=== PATIENT | female | born 1995 | race Caucasian/White ===

== ENCOUNTER 2019-08-05 16:34 | Emergency (ER) | payer OTHER, SELFPAY ==
[2019-08-05 16:52] VITALS: BP 126/77; PULSE 108; RESP 20; TEMP 37.8; O2SAT 100
--- NOTE | 2019-08-05 17:37 | ED.GENADULT ---
HPI - General Adult General Chief complaint: Upper Respiratory Infection Stated complaint: congested cough and fever Time Seen by Provider: 08/05/19 17:38 Source: patient and RN notes reviewed Mode of arrival: ambulatory Limitations: no limitations History of Present Illness HPI narrative: This is a 23 years old female presented office for evaluation of flulike symptom for three days. Symptoms include stuffy nose, sore throat, fever, and cough. Denies vomiting or diarrhea. She has been taking cold medicine for her symptoms. Denies sick contact. She normally does not get influenza vaccine. Related Data Home Medications Medication Instructions Recorded Confirmed No Home Medications 08/05/19 08/05/19 Allergies Allergy/AdvReac Type Severity Reaction Status Date / Time cefaclor Allergy Mild Rash Verified 02/19/19 16:39 Review of Systems Review of Systems: Narrative: CONSTITUTIONAL:Reports fever, chills, sweats. ENT: Reports rhinorrhea, congestion, sore throat. Denies ears pain CARDIOVASCULAR: Denies chest pain RESPIRATORY: Denies dyspnea, wheezing. Reports cough GASTROINTESTINAL: Denies abdominal pain, nausea, vomiting, diarrhea. GENITOURINARY: Denies urinary symptoms or discharge SKIN: Denies rash MUSCULOSKELETAL: Denies acute back pain NEUROLOGIC: Denies lightheaded PMFSH Social History Social History (Updated 08/05/19 @ 17:44 by ROXIE Parisi) Smoking status: Never smoker Comments At time of signature, I agree with nursing past medical, surgical, social and family history. There is no relevant family history pertinent to the presenting complaint. Exam Narrative: Exam Narrative: GENERAL: This is a well-nourished, well-developed patient, in no apparent distress. EYES: Sclera clear/white. Vision is grossly intact. EARS: External ears normal, auditory canals clear and without drainage, TMs normal without perforation. Hearing grossly intact. NOSE: External nose normal with no obvious nasal discharge, nares without redness, no rhinorrhea. THROAT: Mucous membranes moist, posterior pharynx erythema with drainage. NECK: Neck supple, non-tender without lymphadenopathy, masses or thyromegaly. CARDIOVASCULAR: Regular rate and rhythm without murmurs, gallops, or rubs. RESPIRATORY: Clear to auscultation. Breath sounds equal bilaterally. No wheezes, rales, or rhonchi. GASTROINTESTINAL: Abdomen soft, non-tender, nondistended. Bowel sounds are active. No hepato-splenomegaly, or palpable masses. No guarding. SKIN: warm, intact with no suspicious lesions or rash, good texture and turgor. NEURO: awake, alert, and oriented to person, place and time. There were no obvious focal neurologic abnormalities. Steady gait Darryn Coma Scale Eye Opening: Spontaneous 4 Darryn Coma Scale Motor: Obeys Commands 6 Darryn Coma Scale Verbal: Oriented 5 Course Vital Signs Vital signs: Vital Signs Temperature 100.1 F H 08/05/19 16:52 Pulse Rate 108 H 08/05/19 16:52 Respiratory Rate 08/05/19 16:52 Blood Pressure 126/77 08/05/19 16:52 Pulse Oximetry 100 08/05/19 16:52 Temperature 100.1 F H 08/05/19 16:52 Pulse Rate 108 H 08/05/19 16:52 Respiratory Rate 08/05/19 16:52 Blood Pressure 126/77 08/05/19 16:52 Pulse Oximetry 100 08/05/19 16:52 Medical Decision Making MDM Narrative Medical decision making narrative: Discharge instructions reviewed with patient, as well as provided in writing per nursing staff. The instructions also include specific and strict return/GO TO THE ER as well as f/u information. All questions have been answered, and the patient* deny any further questions with discharge and discharge plan. Differential Diagnosis Differential Diagnosis: pneumonia, Allergic Rhinitis, Upper respiratory cough syndrome, Pharyngitis, Sinusitis, Bronchitis, otitis media, viral URI, Asthma/reactive airway disease, influenza Vital Signs Vital Signs: Vital Signs Temperature 100.1
== END 2019-08-05 17:50 | disposition home or self-care (01) ==
PROVIDERS: Emergency Provider Nurse Practitioner
DX: J10.1 Influenza due to other identified influenza virus with other respiratory manifestations (principal)
CPT/HCPCS: 87804; 99212; G0463

== ENCOUNTER 2020-01-11 09:10 | Emergency (ER) | payer OTHER, SELFPAY ==
[2020-01-11 09:15] VITALS: BP 119/80; PULSE 84; RESP 16; TEMP 37.1; O2SAT 100
--- NOTE | 2020-01-11 09:38 | ED.GENADULT ---
HPI - General Adult General Chief complaint: Urogenital-Female Stated complaint: frequent urination/pain with urination Time Seen by Provider: 01/11/20 09:38 Source: patient and RN notes reviewed Mode of arrival: ambulatory Limitations: no limitations History of Present Illness HPI narrative: 24-year-old female presents with urinary complaints for the past 3 days. Dysuria consist of burning, frequency, and urgency.? Azo yesterday with some relief.? Denies fever or chills. No significant pelvic pain. No vaginal discharge.? No concerns for STDs. Exacerbating factors urinating.? Denies hematuria or vaginal bleeding. Denies being , LMP 01/10/20.? No flank pain. Denies nausea, vomiting, and abdominal pain.? Tolerating liquids well.? Remains active. The patient reports she have not been diagnosed with COVID-19. The patient reports she is not waiting for the results of a COVID-19 lab test. The patient reports she do not have fever, chills, weakness, or fatigue. The patient reports she do not have a new or worsening cough or shortness of breath. Denies chest pain. The patient reports she do not have any rhinorrhea, congestion, sore throat, and diarrhea. Denies recent traveling. Denies concerns for COVID-19 or exposures been home with limited outdoor exposure except for essential household needs, work, and return home. At this time, patient is not suspected of having COVID-19. Some parts of this dictation were generated by voice recognition software and may contain typographical and/or grammatical inaccuracies. Related Data Allergies Allergy/AdvReac Type Severity Reaction Status Date / Time cefaclor Allergy Mild Rash Verified 01/11/20 09:38 Review of Systems Review of Systems: Narrative: CONSTITUTIONAL: Denies fever, chills, sweats. EYES: Denies visual changes, redness, discharge. ENT: Denies rhinorrhea, congestion, sore throat, otalgia. CARDIOVASCULAR: Denies chest pain, palpitations, edema. RESPIRATORY: Denies dyspnea, wheezing, cough. GASTROINTESTINAL: Denies abdominal pain, nausea, vomiting, diarrhea. GENITOURINARY: Complains of dysuria (burning, frequency, and urgency). Denies hematuria, abnormal discharge. SKIN: Denies rash or itching. MUSCULOSKELETAL: Denies acute back pain, joint pain, or myalgia. NEUROLOGIC: Denies numbness or focal weakness. PSYCHIATRIC: Denies anxiety or depression. All systems reviewed & are unremarkable except as noted in HPI and below. [facility] Past Medical History Medical History (Updated 01/11/20 @ 10:45 by ROXIE Alonzo) No significant past medical history Surgical History Surgical History (Updated 01/11/20 @ 10:45 by ROXIE Alonzo) No significant past surgical history Family History Family History (Updated 01/11/20 @ 10:46 by ROXIE Alonzo) Father Alive and well Father Alive and well Social History Social History (Updated 01/11/20 @ 10:46 by ROXIE Alonzo) Smoking status: Never smoker Second hand tobacco smoke exposure: Yes Alcohol intake: never Substance use: never Living arrangements: with family Occupation/Education: occupation Gender identity (if verbalized by the patient): Female Sexual Orientation (if Verbalized by the Patient): Straight or Heterosexual Comments At time of signature, agree with nurse past medical, surgical, social, and family history.? There is no relevant family history pertinent to the presenting complaint. Exam Narrative: Exam Narrative: GENERAL: This is a well-nourished, well-developed patient, in no apparent distress.? Talks in full sentences and ambulates with steady gait without dyspnea. HEAD: normocephalic, atraumatic. EYES: PERRL. Sclera clear/white. Vision is grossly intact. CARDIOVASCULAR: Regular rate and rhythm without murmurs, gallops, or rubs. RESPIRATORY: Clear to auscultation. Breath sounds equal bilaterally. No wheezes, rales, or rhonchi.? GASTROINTESTINAL: Abdomen soft
== END 2020-01-11 09:48 | disposition home or self-care (01) ==
PROVIDERS: Emergency Provider Nurse Practitioner Family
DX: R30.0 Dysuria (principal)
CPT/HCPCS: 81003; 87077; 87086; 87088; 99213; G0463

== ENCOUNTER 2021-05-11 01:39 | Day surgery (SDC) | payer OTHER, MEDICAID, SELFPAY ==
[2021-05-06 12:19] VITALS: BMI 37.9
--- NOTE | 2021-05-06 12:25 | PC.NURSE ---
Report to the Outpatient Waiting Room, entrance under the green pavilion located off [facility], at time 0600 on date 05/09/21. OR Time: 0730. - You and your visitor will be asked a series of questions to screen for COVID 19 for your protection. - A mask is required within the hospital. - Only one visitor is allowed at this time. Patient visitors will be guided where to wait when not with patient. Preoperative COVID Testing Requirements: No COVID Test needed if: (proof is required; if not received patient will have Rapid Test prior to entry) - Patient has received COVID Vaccine at least 14 days prior to procedure date or - Patient has positive COVID test result within last 90 days of surgery date. COVID Test needed if above criteria is not met If not COVID vaccinated a COVID test must be conducted within 72 hours of surgery and patient is asked to isolate self from time of testing until procedure. You will go to the [facility] for your COVID testing. The [facility] site is located at the corner of [address] [facility]. COVID TEST 05/07 AT 0935 You will only be called if COVID results are positive and your surgeon may reschedule your elective surgery date. Patients may have clear liquids (water, carbonated beverages, clear teas, apple juice) until 3 hours prior to surgery with a maximum of 20 ounces. - No food from midnight until time of surgery - Infants may have breast milk until 4 hours before surgery, infant formula 6 hours prior to surgery. - Children will be allowed to drink immediately following surgery. If applicable, please bring a bottle or sippy cup to assist with drinking. Juice, water, soda, and popsicles are readily available. For infants on formula, please bring formula the day of surgery. Pacifiers are allowed. Take the following medications with a SIP of water the morning of surgery: N/A Medications to discontinue per physician: N/A Date to take last dose: N/A Please no make-up, nail ukrainian, hairspray, perfume, deodorant, or body powder the day of surgery. No jewelry (including any body piercings) or valuables the day of surgery, leave them at home. Please take a shower or bath the night before, or the morning of, surgery with an antibacterial soap. Wear comfortable, loose fitting clothing. Children are encouraged to wear pajamas. - Jewelry must be removed prior to entering the operating room. Rings and piercings that are not removed may be cut off. - The hospital will not accept responsibility for valuables. - Please leave all valuables, including medications, at home the day of surgery. If you are going home after surgery, a licensed patrol driver must drive you home. - NO public transportation without another adult. - We recommend that an adult stay with you for 24 hours following discharge. - We also recommend that you do not drive, make important decision, drink alcoholic beverages, or take any drugs that were not prescribed by your health care provider for at least 24 hours after your discharge time. For Pediatric surgeries, we recommend two adults accompany the child home (only one inside the building at this time). Follow any additional instructions given to you from your surgeon. Telephone instructions given to ROBERT CASTRO and asked if any additional questions and then verbalized understanding. Patient advised to call surgeon office or pre surgery nurse liaison [phone] if any additional questions.
--- NOTE | 2021-05-09 09:49 | PC.NURSE ---
Pt. denies any changes in health history or medications since initial interview. Pt to have Covid test today (05/09) at Dr. Ingram's office. Pt informed of new date/time - arrival at 0900 on 05/11 for surgery at 1100. No food after midnight, up to 20oz of clear liquids until 0800. Pt denies any questions at this time.
[2021-05-11 09:00] VITALS: BP 142/79; PULSE 65; RESP 16; TEMP 36.3; O2SAT 100
[2021-05-11] MEDS: ACETAMINOPHEN 500 MG TABLET 1000 MG PO (09:16)
--- NOTE | 2021-05-11 09:30 | WPDHPUPDATE1 ---
History and Physical Update Update Date/Time: 05/11/21 09:30 History and Physical has been reviewed, including an updated exam of the patient. There are NO changes in the patient's condition. Risks, benefits, and alternatives have been discussed and questions answered. Patient agrees to proceed with procedure.
--- NOTE | 2021-05-11 09:31 | WPDHPUPDATE1 ---
History and Physical Update Update Date/Time: 05/11/21 09:31 History and Physical has been reviewed, including an updated exam of the patient. There are NO changes in the patient's condition. Risks, benefits, and alternatives have been discussed and questions answered. Patient agrees to proceed with procedure.
[2021-05-11] MEDS: LACTATED RINGERS 1,000 ML 30 ML IV CONT (09:36)
--- NOTE | 2021-05-11 09:41 | WPDANESEPPF ---
Anes - Initial Pre Proc Eval Procedure: Operation Date: 05/11/21 11:00 Proposed Procedures p Suction Dilation and Curettage - Juan Ingram MD Date/Time: 05/11/21 09:41 Surgeon: Juan Ingram MD Pre Op Diagnosis: incomplete Patient Data Age: 25 Gender: F Height: 1.73 m Weight: 110.6 kg Last Vital Signs Temp 36.3 C L 05/11/21 09:00 Pulse 65 05/11/21 09:00 Resp 16 05/11/21 09:00 BP 142/79 H 05/11/21 09:00 Pulse Ox 100 05/11/21 09:00 Allergies Allergy/AdvReac Type Severity Reaction Status Date / Time cefaclor Allergy Mild Rash Verified 05/11/21 09:13 Home Medications Medication Instructions Recorded Confirmed Type No Home Medications 05/06/21 05/06/21 History Patient hx anesthesia problems: none Family hx anesthesia problems: none Results Review: All pre-operative results and documents have been reviewed as part of the pre-operative evaluation. [facility] Past Medical History Medical History No significant past medical history Surgical History Surgical History No significant past surgical history Family History Family History Father Alive and well Father Alive and well Social History Social History Smoking status: Never smoker Second hand tobacco smoke exposure: Yes Alcohol intake: never Substance use: never Substance use type: does not use Living arrangements: with family Additional living arrangements comments: CHILDREN Gender identity (if verbalized by the patient): Female Sexual Orientation (if Verbalized by the Patient): Straight or Heterosexual Spiritual care concerns: No Anes - Eval Final PreProcedure Day of Procedure 05/11/21 09:41 Patient weight: obese Heart: regular rate and rhythm Lungs: clear to auscultation Airway: Mallampati scale class II Neurological: alert and oriented Last oral intake: >/= 8 hours ASA classification: II Emergent: no Anesthetic plan: proceed Anesthesia type and monitoring: general GIVS and standard monitoring Results Review: All pre-operative results and documents have been reviewed as part of the pre-operative evaluation. Informed Consent: The patient's anesthetic plan and its attendant risks and benefits were discussed with the patient/family/POA. Questions were solicited and answers provided to the satisfaction of the patient/family/POA.
[2021-05-11 10:18] VITALS: BP 127/68; PULSE 79; RESP 14; O2SAT 94
--- NOTE | 2021-05-11 10:23 | W.PM.PROC2 ---
Procedure Note - Detailed Date of Procedure 05/11/21 Pre-op Diagnosis incomplete Post-op Diagnosis same Procedure Performed Suction D&C Surgeon Juan Ingram MD Anesthesia MAC Indications missed Findings normal-appearing vulva vagina and cervix to. Moderate amount of products conception within the uterus. 8 cm uterus Description of Procedure the patient was taken the operating room. She was prepped and draped in dorsal lithotomy position after induction of mac anesthesia. A speculum was placed in the vagina. Cervix grasped with tenaculum. The cervix was dilated to about 1 cm Using Delaney dilators. A 8. Kinyarwanda curved curette was used to perform suction D&C. The curette was introduced and vacuum was applied. The curette was removed over all surfaces of the intrauterine cavity multiple times. This was done until all the surfaces were clear and had the familiar grainy texture they can be felt through the instrument. A sharp curette was then used to curettage all the surfaces. The suction cup was then reapplied 1 more time to remove any debris. The instruments were removed. The speculum and tenaculum were removed. The patient tolerated the procedure well. She was taken recovery room stable condition. Estimated Blood Loss 50 Drains No Packing No Pathology yes Complications No immediate complications Condition stable Disposition PACU
[2021-05-11 10:35] VITALS: BP 110/72; PULSE 62; RESP 14
[2021-05-11 11:00] VITALS: BP 117/86; PULSE 59
== END 2021-05-11 11:19 | disposition home or self-care (01) ==
PROVIDERS: Visit Provider Obstetrics & Gynecology
PROC: (CPT 59820; principal; 2021-05-11 11:00)
DX: O02.1 Missed abortion (principal)
CPT/HCPCS: 59820; 36415; 85461; 88305; A9270; J2250; J2704; J3010; J7120

== ENCOUNTER 2021-12-21 12:08 | Emergency (ER) | payer OTHER, MEDICAID, SELFPAY ==
[2021-12-21 12:15] VITALS: BP 118/70; PULSE 80; RESP 14; TEMP 37; O2SAT 98
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
[2021-12-21 12:24] VITALS: BP 118/70; PULSE 80; RESP 14; TEMP 37; O2SAT 98
== END 2021-12-21 12:40 | disposition home or self-care (01) ==
PROVIDERS: Emergency Provider Nurse Practitioner Family
DX: T25.222A Burn of second degree of left foot, initial encounter (principal); X08.8XXA Exposure to other specified smoke, fire and flames, initial encounter
CPT/HCPCS: 99213; G0463

== ENCOUNTER 2022-06-24 10:10 | Emergency (ER) | payer OTHER, SELFPAY ==
--- NOTE | ~2022-06-24 | XR_ITS ---
XR hand LT min 3V 06/24/2022 10:51 Indication: Left hand pain after fall Procedure: 3 views left hand Comparison: No prior studies for comparison. Findings: There is an oblique midshaft fracture of the fourth metacarpal with mild dorsal displacemen t. No significant angulation. No intra-articular extension. No foreign bodies. Impression: 1: Oblique midshaft fracture left fourth metacarpal with mild dorsal displacement. Reviewed, dictated and finalized at location A. R [employer] Impression: 1: Oblique midshaft fracture left fourth metacarpal with mild dorsal displaceme nt.
[2022-06-24 10:29] VITALS: BP 133/87; PULSE 88; RESP 18; TEMP 36.9; O2SAT 100
--- NOTE | 2022-06-24 13:05 | ED.HEATRA ---
HPI - Head Injury General Chief complaint: Head Injury Stated complaint: fall - head lac, finger injury Time Seen by Provider: 06/24/22 12:58 History of Present Illness HPI Narrative: 26 year old [id number] female here for evaluation of left hand pain and a laceration to her posterior head today. Patient states that she was putting away [place] decorations on a step-stool when she fell backwards and struck her head against a shelf in her left hand against the ground. Tetanus is up to date. She is complaining of posterior headache and left hand pain ever since the accident. Denies nausea, vomiting, loss of consciousness, visual changes, blood thinner use. Related Data Home Medications Medication Instructions Recorded Confirmed albuterol sulfate 90 mcg/actuation inhalation 06/24/22 06/24/22 aerosol inhaler medroxyprogesterone 150 mg/mL mg IM 06/24/22 intramuscular syringe Allergies Allergy/AdvReac Type Severity Reaction Status Date / Time cefaclor Allergy Mild Rash Verified 06/24/22 10:32 Review of Systems Review of Systems: Gen: Denies fevers or chills Eyes: Denies eye pain or visual change ENT: Denies congestion Respiratory: Denies shortness of breath or cough CV: Denies chest pain or palpitations GI: Denies abdominal pain nausea, emesis or diarrhea : denies burning, urgency, frequency or hematuria Musculoskeletal: Reports left hand pain. Denies back pain or muscle pain Neuro: Denies numbness, tingling, weakness or focal weakness Skin: Reports laceration to posterior scalp. Except as documented, all other systems reviewed and negative [facility] Past Medical History Medical History No significant past medical history Surgical History Surgical History No significant past surgical history Family History Family History Father Alive and well Father Alive and well Social History Social History Smoking status: Never smoker Second hand tobacco smoke exposure: Yes Alcohol intake: never Substance use: never Substance use type: does not use Additional living arrangements comments: CHILDREN Gender identity (if verbalized by the patient): Female Sexual Orientation (if Verbalized by the Patient): Straight or Heterosexual Spiritual care concerns: No Exam Narrative: APPEARANCE: Well appearing, no pain in distress, well-nourished. Head: Normocephalic and atraumatic. EYES: PERRLA/EOMI, conjunctivae clear NOSE: No nasal drainage EARS: External ear normal in appearance THROAT: Oropharynx is clear. Mucous membranes are moist. NECK: Supple. No adenopathy, no masses. RESPIRATORY: Airway patent, respirations nonlabored. Clear to auscultation bilaterally, no rales, rhonchi, wheezing. CARDIOVASCULAR: Regular rate and rhythm without murmurs, rubs, or gallops. ABDOMINAL: Normoactive bowel sounds. Soft, nontender, nondistended. No rebound tenderness or guarding. MUSCULOSKELETAL: Patient has bruising and swelling over the base of the fourth metacarpal on the dorsum of the right hand. no malrotation noted with semi clenched fist or with flexion at the MCP 90 degrees NEURO: Normal speech. No focal neurologic deficits. SKIN: Patient has a 1-1/2 linear laceration to her posterior scalp in the occipital region with no active bleeding. PSYCHIATRIC: Normal affect/mood. Course Vital Signs Vital signs: Vital Signs Temperature 98.5 F 06/24/22 10:29 Pulse Rate 88 06/24/22 10:29 Respiratory Rate 18 06/24/22 10:29 Blood Pressure 133/87 06/24/22 10:29 Pulse Oximetry 100 06/24/22 10:29 Oxygen Delivery Room Air 06/24/22 10:29 Temperature 98.5 F 06/24/22 10:29 Pulse Rate 88 06/24/22 10:29 Respiratory Rate 18 06/24/22 10:29 Blood Pressure
[2022-06-24] MEDS: HYDROcodone/acetaminophen (*CRX) 5-325 MG TABLET 1 TAB PO (13:10)
[2022-06-24] MEDS: LIDOCAINE, EPINEPHRINE, TETRACAINE VISCOUS SOLN 3 ML TOPICAL (13:11)
== END 2022-06-24 14:55 | disposition home or self-care (01) ==
PROVIDERS: Emergency Provider Physician Assistant
DX: S01.01XA Laceration without foreign body of scalp, initial encounter (principal); S62.325A Displaced fracture of shaft of fourth metacarpal bone, left hand, initial encounter for closed fracture; Z77.22 Contact with and (suspected) exposure to environmental tobacco smoke (acute) (chronic); W17.89XA Other fall from one level to another, initial encounter; W22.8XXA Striking against or struck by other objects, initial encounter
CPT/HCPCS: 12011; 29125; 73130; 99284; A4565; A9270